=== PATIENT | female | born 1945 | race Caucasian/White ===

== ENCOUNTER → 2017-05-11 | Outpatient (REF) | payer MEDICARE, BC | LOC: M LAB REF 16:25 | PROVIDERS: ATTEND Physician Assistant | DX: R30.0 Dysuria (principal) ==

== ENCOUNTER → 2018-06-27 | Outpatient (REF) | payer MEDICARE, BC | LOC: M LAB REF 16:19 | DX: N39.0 Urinary tract infection, site not specified (principal) | CPT/HCPCS: 87186 ==

== ENCOUNTER → 2018-07-15 | Outpatient (CLI) | payer MEDICARE, BC | LOC: M WUC 15:25 | DX: M19.011 Primary osteoarthritis, right shoulder (principal) | CPT/HCPCS: 73030 ==

== ENCOUNTER → 2020-04-12 | Outpatient (REF) | payer MEDICARE, BC | LOC: M WUC 15:50 | PROVIDERS: ATTEND Physician Assistant | DX: R30.0 Dysuria (principal) ==

== ENCOUNTER → 2020-06-17 | Outpatient (REF) | payer MEDICARE, BC | LOC: M LAB REF 18:24 | PROVIDERS: ATTEND Physician Assistant | DX: R19.7 Diarrhea, unspecified (principal) ==

== ENCOUNTER → 2021-04-07 | Outpatient (CLI) | payer MEDICARE, BC ==
[2021-04-07 17:16] LABS: BASO # 0.1 10^3/uL (0.0-0.2); BASO % 0.6 % (0.0-1.0); EOS # 0.2 10^3/uL (0.0-0.5); EOS % 2.3 % (0.0-3.0); HEMOGLOBIN 13.7 g/dl (12.0-15.5); LYMPH # 1.7 10^3/uL (1.5-5.0); LYMPH % 20.1 % (24.0-44.0); MEAN CORPUSCULAR HEMOGLOBIN 31.3 pg (27.0-33.0); MEAN CORPUSCULAR HGB CONC 33.4 g/dl (32.0-36.5); MEAN CORPUSCULAR VOLUME 93.6 fl (80.0-96.0); MONO # 0.5 10^3/uL (0.0-0.8); MONO % 5.8 % (2.0-8.0); PLATELET COUNT, AUTOMATED 229 10^3/uL (150-450); RED BLOOD COUNT 4.38 10^6/uL (4.00-5.40); WHITE BLOOD COUNT 8.4 10^3/uL (4.0-10.0)
[2021-04-07 17:20] LABS: INR 0.98; PROTHROMBIN TIME 13.2 SECONDS (12.5-14.3)
[2021-04-07 17:21] LABS: PARTIAL THROMBOPLASTIN TIME 26.4 SECONDS (24.2-38.5)
[2021-04-07 18:43] LABS: ALBUMIN 4.1 GM/DL (3.2-5.2); BILIRUBIN,TOTAL 0.7 MG/DL (0.2-1.0); CALCIUM LEVEL 9.2 MG/DL (8.8-10.2); CREATININE FOR GFR 1.02 MG/DL (0.55-1.30); GLOMERULAR FILTRATION RATE 56.6 (>39); POTASSIUM SERUM 3.9 MEQ/L (3.5-5.1); TOTAL PROTEIN 7.5 GM/DL (6.4-8.2)
[2021-04-07 19:55] LABS: HEMOGLOBIN A1c 7.2 %
== END ==
LOC: M WUC 14:31
PROVIDERS: ATTEND Physician Assistant
DX: R04.0 Epistaxis (principal); E11.65 Type 2 diabetes mellitus with hyperglycemia

== ENCOUNTER 2021-04-11 12:15 | Emergency (ER) | payer MEDICARE, BC ==
[~2021-04-11] VITALS: Ht 162.6 cm; Wt 68.8 kg
[2021-04-11] MEDS ORDERED: ACTO30TA15 PO (12:24)
[2021-04-11] MEDS ORDERED: METF-877 PO (12:24)
[2021-04-11] MEDS ORDERED: QUIN20TA15 PO (12:24)
[2021-04-11] MEDS ORDERED: JANU100T PO (12:24)
[2021-04-11] MEDS ORDERED: SODIUM CHLORIDE NASAL 0.65% SPRAY BTL (OCEAN) STA (13:28)
[2021-04-11] MEDS ORDERED: OXYMETAZOLINE 0.05% NASAL SPRAY (AFRIN) ONE (13:30)
[2021-04-11 14:19] LABS: BASO # 0.1 10^3/uL (0.0-0.2); BASO % 0.6 % (0.0-1.0); EOS # 0.1 10^3/uL (0.0-0.5); EOS % 1.1 % (0.0-3.0); HEMATOCRIT 40.4 % (36.0-47.0); HEMOGLOBIN 13.3 g/dl (12.0-15.5); LYMPH # 1.8 10^3/uL (1.5-5.0); LYMPH % 15.5 % (24.0-44.0); MEAN CORPUSCULAR HEMOGLOBIN 30.4 pg (27.0-33.0); MEAN CORPUSCULAR HGB CONC 32.9 g/dl (32.0-36.5); MEAN CORPUSCULAR VOLUME 92.4 fl (80.0-96.0); MONO # 0.5 10^3/uL (0.0-0.8); MONO % 4.8 % (2.0-8.0); NEUTROPHILS # 8.8 10^3/uL (1.5-8.5); NEUTROPHILS % 77.6 % (36.0-66.0); PLATELET COUNT, AUTOMATED 220 10^3/uL (150-450); RED BLOOD COUNT 4.37 10^6/uL (4.00-5.40); WHITE BLOOD COUNT 11.4 10^3/uL (4.0-10.0)
[2021-04-11 14:28] LABS: INR 0.98; PROTHROMBIN TIME 13.2 SECONDS (12.5-14.3)
[2021-04-11 14:29] LABS: PARTIAL THROMBOPLASTIN TIME 24.7 SECONDS (24.2-38.5)
[2021-04-11] MEDS ORDERED: HM S0.65 NARES (15:31)
[2021-04-11] MEDS ORDERED: QUINAPRIL 20 MG TAB PO STA (15:41)
[2021-04-11] MEDS ORDERED: hydroCHLOROthiazide 12.5 MG CAPSULE PO ONE (15:45)
[2021-04-11 15:46] VITALS: BP 170/92
[2021-04-11 16:07] VITALS: BP 170/92
== END 2021-04-11 16:11 | disposition home or self-care (01) ==
LOC: M ED 12:15
DX: R04.0 Epistaxis (principal); E11.9 Type 2 diabetes mellitus without complications; I10 Essential (primary) hypertension